=== PATIENT | female | born 1945 | race Caucasian/White ===

== ENCOUNTER 2018-10-14 08:26 | Emergency (ER) | payer MEDICARE, OTHER ==
--- NOTE | 2018-10-14 10:16 | RAD ---
THREE VIEW LEFT ANKLE: Indication: Left ankle pain, injury. FINDINGS: There is maintained ankle mortise. Mild soft tissue prominence is present. No fracture or dislocation . Calcaneal enthesophyte formation and scattered osteophytosis is seen. IMPRESSION: Osseous degenerative change without acute abnormality identified at the left ankle. POS: [facility]
--- NOTE | 2018-10-14 10:16 | RAD ---
LEFT TIBIA AND FIBULA THREE VIEWS: Indication: Injury with pain. FINDINGS: No fracture or dislocation. Scattered degenerative change is present. IMPRESSION: No acute osseous abnormality of the left tibia/fibula. POS: [facility]
--- NOTE | 2018-10-14 11:33 | ULT ---
LEFT LOWER EXTREMITY VENOUS ULTRASOUND WITH DOPPLER: Date: 10/14/18 HISTORY: Pain. COMPARISON: None. TECHNIQUE: Reed scale, color flow, Doppler imaging, and spectral waveform analysis performed of the left lower e xtremity venous system. FINDINGS: There is compressibility, presence of flow, and augmentation in the common femoral, femoral vein, and popliteal vein. There is flow in the posterior tibial vein, profunda femoral vein, and greater saphe nous vein. In the region of concern, there is mixed echotexture focus somewhat well-defined, but incompletely ev aluated. Correlate for possible focal hematoma or other soft tissue etiologies. MRI can be performed on a nonemergent basis. IMPRESSION: 1. No evidence of thrombus in the left lower extremity deep venous system. 2. Abnormal soft tissue attenuation in the region of concern, lateral calf. Nonemergent MRI if clini kristie warranted. POS: [facility]
== END 2018-10-14 11:13 | disposition home or self-care (01) ==
LOC: ERS 08:26
DX: M25.472 Effusion, left ankle (principal); M79.672 Pain in left foot; I10 Essential (primary) hypertension; E78.00 Pure hypercholesterolemia, unspecified; Z79.899 Other long term (current) drug therapy; X50.9XXA Other and unspecified overexertion or strenuous movements or postures, initial encounter